=== PATIENT | female | born 1990 ===

== ENCOUNTER 2020-05-03 10:10 | Outpatient (REF) | payer OTHER, SELFPAY ==
[2020-05-03 19:16] LABS: Abs Immature Grans 0.01 10^3/uL (0.0-0.06); Absolute Basophil Count 0.04 10^3/uL (0.0-0.2); Absolute Eosinophil Count 0.12 10^3/uL (0.0-0.7); Absolute Monocyte Count 0.48 10^3/uL (0.1-0.8); Absolute Neutrophil Count 2.97 10^3/uL (1.2-6.7); Basophils % 0.8; Eosinophils % 2.3; HCT 44.5 % (36.0-46.0); HGB 14.2 g/dL (11.2-15.7); Immature Grans % 0.2; Lymphocytes % 30.7; MCHC 31.9 % (32.0-36.0); MCV 87.6 fL (80-95); Monocytes % 9.2; Neutrophils % 56.8; Nucleated RBC 0 %; Platelet Count 179 10^3/uL (130-400); RBC 5.08 10^6/uL (3.93-5.22); RDW 13.5 % (11.7-14.6); RDW-SD 43.7 fL; WBC 5.22 10^3/uL (4.4-10.8)
[2020-05-03 19:26] LABS: Iron 168 ug/dL (50-170); Total Iron Binding Capacity 414 ug/dL (250-450); Transferrin Sat 41 % (15-50)
[2020-05-03 19:42] LABS: ALT 23 U/L (14-59); AST 17 U/L (15-37); Albumin 4.3 g/dL (3.4-5.0); Alkaline Phosphatase 42 U/L (46-116); Anion Gap 2.2 mmol/L (3-11); BUN 16 mg/dL (7-18); Bilirubin, Total 0.6 mg/dL (0.2-1.0); CO2 30.8 mmol/L (21.0-32.0); CREATININE 0.62 mg/dL (0.55-1.02); Calcium 9.3 mg/dL (8.5-10.1); Chloride 107 mmol/L (98-107); Ferritin 40 ng/mL (8-252); Glucose 90 mg/dL (74-106); Potassium 5.3 mmol/L (3.5-5.1); Sodium 140 mmol/L (136-145); Total Protein 7.5 g/dL (6.4-8.2)
== END 2020-05-03 10:30 ==
LOC: NCHCN 10:10
PROVIDERS: Visit Provider Physician Assistant
DX: I38 Endocarditis, valve unspecified (principal); R89.9 Unspecified abnormal finding in specimens from other organs, systems and tissues
CPT/HCPCS: 80053; 82728; 83540; 83550; 85025